=== PATIENT | male | born 1990 | race Caucasian/White ===

== ENCOUNTER 2016-11-03 13:57 | Emergency (ER) | payer SELFPAY ==
[2016-11-03 18:36] VITALS: BP 129/66
[2016-11-03] MEDS ORDERED: NS 0.9% 1000 ML* 1,000 ML IV ONE (20:18)
[2016-11-03 20:28] LABS: Hematocrit 47 % (42-52); Hemoglobin 15.3 g/dl (14.0-18.0); Mean Corpuscular HGB Conc 33 g/dl (31-36); Mean Corpuscular Hemoglobin 28 pg (27-31); Mean Corpuscular Volume 86 fL (80-94); Mean Platelet Volume 9 um3 (7.4-10.4); Red Blood Count 5.47 10^6/ul (4.0-5.4); Red Cell Distribution Width 14 % (10.5-15); White Blood Count 11.6 10^3/ul (3.5-10.8)
[2016-11-03 20:31] LABS: Urine Bilirubin Negative (Negative); Urine Glucose Negative (Negative); Urine Nitrite Negative (Negative)
[2016-11-03 20:43] LABS: Albumin 4.3 g/dL (3.2-5.2); BUN/Creatinine Ratio 17.2 (8-20); C Reactive Protein 58.25 mg/L (< 5.00); Calcium 9.5 mg/dL (8.6-10.3); EGFR African American 137.5 (>60); EGFR Non-African American 106.9 (>60); Globulin 3.3 g/dL (2-4); Potassium 3.8 mmol/L (3.5-5.0); Total Bilirubin 0.4 mg/dL (0.2-1.0); Total Protein 7.6 g/dL (6.4-8.9)
--- NOTE | 2016-11-03 21:22 | ED ---
Michele Murphy Erika, scribed for López Fernandez MD on 11/03/16 at 2053 . GI/ HPI - HPI Summary HPI Summary: Patient is a 26-year-old male presenting to the ED with a CC of diarrhea. Pt reports that starting on 10/25/2016, he had fever (T max 100), vomiting, diarrhea, and diffuse abdominal pain. These symptoms resolved after 3 days. Then , on 11/01/2015, pt developed diarrhea and abdominal pain. He describes the pain as coming intermittently about 4x/hour. Pt reports he has had 15 episodes of diarrhea in the last 6 hours. Symptoms were not alleviated by OTC Cold and Flu medication. Pt reports he has not seen a doctor in years. - History of Current Complaint Chief Complaint: EDAbdPain Time Seen by Provider: 11/03/16 20:12 Stated Complaint: VOMTING/DIARRHEA /ABD PAIN Hx Obtained From: Patient Onset/Duration: Started Days Ago, Atraumatic, Still Present Timing: Intermittent Severity: Moderate Pain Intensity: 7 Location of Pain: Diffuse Pain Characteristics: Cramping Associated Signs and Symptoms: Positive: Diarrhea Aggravating Factor(s): Nothing Alleviating Factor(s): Nothing - Allergy/Home Medications Allergies/Adverse Reactions: Allergies Allergy/AdvReac Type Severity Reaction Status Date / Time No Known Allergies Allergy Verified 10/31/14 20:11 PMH/Surg Hx/FS Hx/Imm Hx Endocrine/Hematology History: Denies: Hx Anticoagulant Therapy, Hx Diabetes, Hx Thyroid Disease Cardiovascular History: Denies: Hx Hypertension, Hx Pacemaker/ICD Respiratory History: Reports: Hx Asthma Denies: Hx Chronic Obstructive Pulmonary Disease (COPD) History: Denies: Hx Renal Disease Neurological History: Denies: Hx Dementia, Hx Seizures Psychiatric History: Denies: Hx Substance Abuse - Immunization History Date of Tetanus Vaccine: unsure Date of Influenza Vaccine: 3 yrs ago Infectious Disease History: No Infectious Disease History: Denies: Hx Hepatitis, Hx Human Immunodeficiency Virus (HIV), Traveled Outside the [place] in Last 30 Days - Family History Known Family History: Positive: Diabetes - Social History Occupation: Employed Full-time Alcohol Use: None Hx Substance Use: No Substance Use Type: Reports: None Hx Tobacco Use: No Smoking Status (MU): Never Smoked Tobacco Review of Systems Negative: Fever Positive: Abdominal Pain, Diarrhea All Other Systems Reviewed And Are Negative: Yes Physical Exam Triage Information Reviewed: Yes Vital Signs On Initial Exam: Initial Vitals Temp Pulse Resp BP Pulse Ox 98.7 F 75 16 155/71 97 11/03/16 13:58 11/03/16 13:58 11/03/16 13:58 11/03/16 13:58 11/03/16 13:58 Vital Signs Reviewed: Yes Appearance: Positive: Well-Appearing, No Pain Distress Skin: Positive: Warm Eyes: Positive: DRAKE ENT: Positive: Hearing grossly normal Neck: Positive: Supple Respiratory/Lung Sounds: Positive: Clear to Auscultation, Breath Sounds Present Cardiovascular: Positive: Normal Abdomen Description: Positive: Nontender, No Organomegaly, Soft Bowel Sounds: Positive: Present Musculoskeletal: Positive: Strength/ROM Intact Neurological: Positive: Sensory/Motor Intact, Alert, Oriented to Person Place, Time Psychiatric: Positive: Normal - Hanna Coma Scale Coma Scale Total: 15 Diagnostics - Vital Signs Vital Signs Temp Pulse Resp BP Pulse Ox 11/03/16 18:34 98.3 F 80 18 129/66 97 11/03/16 13:58 98.7 F 75 16 155/71 97 - Laboratory Lab Results: Lab Results 11/03/16 11/03/16 11/03/16 Range/Units 20:15 20:15 20:15 WBC 11.6 H (3.5-10.8) 10^3/ul RBC 5.47 H (4.0-5.4) 10^6/ul Hgb 15.3 (14.0-18.0) g/dl Hct 47 (42-52) % MCV 86 (80-94) fL MCH 28 (27-31) pg MCHC 33 (31-36) g/dl RDW 14 (10.5-15) % Plt Count 282 (150-450) 10^3/ul MPV 9 (7.4-10.4) um3 Neut % (Auto) 53.7 (38-83) % Lymph % (Auto) 29.1 (25-47) % [place] % (Auto) 13.3 H (1-9) % Eos % (Auto) 3.4 (0-6) % Baso % (Auto) 0.5 (0-2) % Absolute Neuts (auto) 6.2 (1.5-7.7) 10^3/ul Absolute Lymphs (auto) 3.4 (1.0-4.8) 10^3/ul Absolute Monos (auto) 1.5 H (0-0.8) 10^3/ul Absolute Eos (auto) 0.4 (0-0.6) 10^3/ul Absolute Basos (auto) 0.1 (0-0.2) 10^3/ul Absolute Nucleated RBC 0.01 10^3/ul Nucleated RBC % 0.1 Sodium 138 (133-145) mmol/L Potassium 3.8 (3.5-5.0) mmol/L Chloride 105 (101-111) mmol/L Carbon Dioxide 26 (22-32) mmol/L Anion Gap 7 (2-11) mmol/L BUN 15 (6-24) mg/dL Creatinine 0.87 (0.67-1.17) mg/dL Est GFR ( Amer) 137.5 (>60) Est GFR (Non-Af Amer) 106.9 (>60) BUN/Creatinine Ratio 17.2 (8-20) Glucose 99 (70-100) mg/dL Lactic Acid (0.5-2.0) mmol/L Calcium 9.5 (8.6-10.3) mg/dL Total Bilirubin 0.40 (0.2-1.0) mg/dL AST 16 (13-39) U/L ALT 24 (7-52) U/L Alkaline Phosphatase 56 (34-104) U/L C-Reactive Protein 58.25 H (< 5.00) mg/L Total Protein 7.6 (6.4-8.9) g/dL Albumin 4.3 (3.2-5.2) g/dL Globulin 3.3 (2-4) g/dL Albumin/Globulin Ratio 1.3 (1-3) Lipase 17 (11.0-82.0) U/L Urine Color Yellow Urine Appearance Clear Urine pH 5.0 (5-9) Ur Specific [place] 1.033 H (1.010-1.030) Urine Protein Negative (Negative) Urine Ketones Negative (Negative) Urine Blood Negative (Negative) Urine Nitrate Negative (Negative) Urine Bilirubin Negative (Negative) Urine Urobilinogen Negative (Negative) Ur Leukocyte Esterase Negative (Negative) Urine Glucose Negative (Negative) Urine Ascorbic Acid * H (Negative) 11/03/16 Range/Units 20:15 WBC (3.5-10.8) 10^3/ul RBC (4.0-5.4) 10^6/ul Hgb (14.0-18.0) g/dl Hct (42-52) % MCV (80-94) fL MCH (27-31) pg MCHC (31-36) g/dl RDW (10.5-15) % Plt Count (150-450) 10^3/ul MPV (7.4-10.4) um3 Neut % (Auto) (38-83) % Lymph % (Auto) (25-47) % [place] % (Auto) (1-9) % Eos % (Auto) (0-6) % Baso % (Auto) (0-2) % Absolute Neuts (auto) (1.5-7.7) 10^3/ul Absolute Lymphs (auto) (1.0-4.8) 10^3/ul Absolute Monos (auto) (0-0.8) 10^3/ul Absolute Eos (auto) (0-0.6) 10^3/ul Absolute Basos (auto) (0-0.2) 10^3/ul Absolute Nucleated RBC 10^3/ul Nucleated RBC % Sodium (133-145) mmol/L Potassium (3.5-5.0) mmol/L Chloride (101-111) mmol/L Carbon Dioxide (22-32) mmol/L Anion Gap (2-11) mmol/L BUN (6-24) mg/dL Creatinine (0.67-1.17) mg/dL Est GFR ( Amer) (>60) Est GFR (Non-Af Amer) (>60) BUN/Creatinine Ratio (8-20) Glucose (70-100) mg/dL Lactic Acid 0.8 (0.5-2.0) mmol/L Calcium (8.6-10.3) mg/dL Total Bilirubin (0.2-1.0) mg/dL AST (13-39) U/L ALT (7-52) U/L Alkaline Phosphatase (34-104) U/L C-Reactive Protein (< 5.00) mg/L Total Protein (6.4-8.9) g/dL Albumin (3.2-5.2) g/dL Globulin (2-4) g/dL Albumin/Globulin Ratio (1-3) Lipase (11.0-82.0) U/L Urine Color Urine Appearance Urine pH (5-9) Ur Specific [place] (1.010-1.030) Urine Protein (Negative) Urine Ketones (Negative) Urine Blood (Negative) Urine Nitrate (Negative) Urine Bilirubin (Negative) Urine Urobilinogen (Negative) Ur Leukocyte Esterase (Negative) Urine Glucose (Negative) Urine Ascorbic Acid (Negative) Pertinent Lab Values Are: WNL Result Diagrams: 11/03/16 20:15 11/03/16 20:15 Lab Statement: Any lab studies that have been ordered have been reviewed, and results considered in the medical decision making process. Re-Evaluation - Re-Evaluation First Eval Re-Evaluation Time: 21:26 Change: Improved Comment: Patient feels improved and will be discharged GIGU Course/Dx - Course Assessment/Plan: A 26 y/o M presents to the ED with a CC of abdominal pain and diarrhea. Pt was given IV fluids in the ED, and feels improved. He will be discharged with follow up from GI. - Diagnoses Provider Diagnoses: Abdominal pain, Diarrhea Discharge - Discharge Plan Condition: Stable Disposition: HOME Patient Education Materials: Abdominal Pain (ED), Acute Diarrhea (ED) Referrals: Ayush Rodriguez MD [Medical Doctor] - Additional Instructions: Please follow up with GI. The documentation as recorded by the Michele marks Erika accurately reflects the service I personally performed and the decisions made by me, López Fernandez MD.
== END 2016-11-03 22:07 | disposition home or self-care (01) ==
LOC: ED 13:57
DX: R10.9 Unspecified abdominal pain (principal); R19.7 Diarrhea, unspecified; R11.10 Vomiting, unspecified
CPT/HCPCS: 36415; 80053; 81003; 83605; 83690; 85025; 86140; 96360; 99282

== ENCOUNTER 2017-02-09 12:23 | Emergency (ER) | payer SELFPAY ==
--- NOTE | 2017-02-09 15:10 | UC ---
Abdominal Pain Male HPI - HPI Summary HPI Summary: The patient comes in today for: 1. Epigastric pain: Onset: 1-2 weeks but he has had new symptoms (fatigue, anorexia, "feeling off"- -"blah"). Palliative/provocative: Nothing makes the pain better or worse. Quality: "Irritating, ache" Region: Epigastric area. Severity: 2/10 Associated symptoms: He has a history of "stomach issues." He has seen GI "a few months ago." He had blood work and blood in the stool and for ceiliac disease. No endoscopy was done. The final diagnosis was irritable bowel. Last seen November. He was not given any Rx by his GI physician. Vomiting: None. Diarrhea: 2-3 stools a day recently--soft--not liquid. Previous treatment: None. Heartburn: present "sometimes." * - History of Current Complaint Chief Complaint: UCAbdominalPain Stated Complaint: ABD PAIN Time Seen by Provider: 02/09/17 15:05 Hx Obtained From: Patient - Allergies/Home Medications Allergies/Adverse Reactions: Allergies Allergy/AdvReac Type Severity Reaction Status Date / Time No Known Allergies Allergy Verified 10/31/14 20:11 PMH/Surg Hx/FS Hx/Imm Hx Previously Healthy: Yes Endocrine History Of: Denies: Diabetes, Thyroid Disease, Hyperthyroidism, Hypothyroidism, Dyslipidemia Cardiovascular History Of: Denies: Cardiac Disorders, Hypertension, Pacemaker/ICD, Myocardial Infarction , Congestive Heart Failure, Atrial Fibrillation, Deep Vein Thrombosis, Bleeding Disorders Respiratory History Of: Reports: Asthma - He was last treated for it "years ago. " Denies: COPD, Bronchitis, Pneumonia, Pulmonary Embolism GI/ History Of: Denies: Gastroesophageal Reflux, Ulcer, Gastrointestinal Bleed, Gall Bladder Disease, Kidney Stones, Diverticulitis, Renal Disease, Urosepsis Neurological History Of: Denies: TIA, CVA, Dementia, Seizures, Migraine Psychological History Of: Denies: Anxiety, Depression, Bipolar Disorder, Schizophrenia, Post Traumatic Stress Disorder Cancer History Of: Denies: Lung Cancer, Colorectal Cancer, Breast Cancer, Prostate Cancer, Cervical Cancer Other History Of: Negative For: HIV, Hepatitis B, Hepatitis C, Anticoagulant Therapy - Surgical History Surgical History: None - Family History Known Family History: Positive: Diabetes Negative: Cardiac Disease - Social History Occupation: Employed Full-time Alcohol Use: None Substance Use Type: None Smoking Status (MU): Never Smoked Tobacco Review of Systems Constitutional: Negative Skin: Negative Eyes: Negative ENT: Negative Respiratory: Negative Cardiovascular: Negative Gastrointestinal: Abdominal Pain Genitourinary: Negative All Other Systems Reviewed And Are Negative: Yes Physical Exam Triage Information Reviewed: Yes Appearance: Well-Appearing, No Pain Distress, Well-Nourished Vital Signs: Initial Vital Signs Temp 98.2 F 02/09/17 12:56 Pulse 79 02/09/17 12:56 Resp 16 02/09/17 12:56 BP 118/53 02/09/17 12:56 Pulse Ox 100 02/09/17 12:56 Vital Signs Reviewed: Yes Eyes: Positive: Conjunctiva Clear. Negative: Discharge ENT: Positive: Hearing grossly normal. Negative: Pharyngeal erythema, Nasal congestion, Nasal drainage, TM bulging, TM dull, TM red, Tonsillar swelling, Tonsillar exudate Dental: Negative: Gross Decay/Caries @, Dental Fracture @ Neck: Positive: Supple, Nontender, No Lymphadenopathy. Negative: Nuchal Rigidity Respiratory: Positive: Chest non-tender, Lungs clear, Normal breath sounds, No respiratory distress, No accessory muscle use. Negative: Rhonchi, Wheezing Cardiovascular: Positive: RRR, No Murmur Abdomen Description: Positive: No Organomegaly, Soft. Negative: Nontender - He has minimal tenderness in the epigastric area. There is no percussion tenderness or rebound., Distended, Guarding Musculoskeletal: Positive: Strength Intact, ROM Intact Neurological: Positive: Alert, Muscle Tone Normal Psychological: Positive: Age Appropriate Behavior, Consolable Skin: Negative: rashes, breakdown Re-Evaluation - Re-Evaluation First Eval Change: Improved - 30 ml of Maalox Plus and 15 ml of viscous lidocaine significantly helped his epigastric discomfort. Abd Pain Male Course/Dx - Course Course Of Treatment: Patient was told that his presentation is consistent with peptic ulcer disease and recommended PPI. He stated that he wanted to try this. - Differential Dx/Clinical Impression Differential Diagnosis/HQI/PQRI: Constipation, Pancreatitis Provider Diagnoses: dyspepsia Discharge - Discharge Plan Condition: Stable Disposition: HOME Patient Education Materials: Indigestion (ED), Gastritis (ED) Forms: *Work Release Referrals: [facility] [Outside] No Primary Care Phys,NOPCP [Primary Care Provider] - 1 Week (Please see your primary care provider in the next week. If you get worse, please be seen sooner by your primary care provider or us or the ER. If you don't have a primary care provider, please call the physician referral line to help you get one. If you can't get in sooner, you may see us or the ER.)
[2017-02-09] MEDS ORDERED: Al Hydrox/Mg Hydrox/Simet LIQ* 30 ML UDC PO ONE (15:18)
[2017-02-09] MEDS ORDERED: Lidocaine 2% VISCOUS* 15 ML UDC PO ONE (15:19)
[2017-02-09 15:46] VITALS: BP 111/71
== END 2017-02-09 16:01 | disposition home or self-care (01) ==
LOC: UCEAST 12:23
DX: R10.13 Epigastric pain (principal)
CPT/HCPCS: 99212; A9270-GY; G0463

== ENCOUNTER 2017-04-17 09:06 | Emergency (ER) | payer SELFPAY ==
--- NOTE | 2017-04-17 09:26 | UC ---
Ear Complaint HPI - History of Current Complaint Chief Complaint: UCEar Stated Complaint: EAR PAIN Time Seen by Provider: 04/17/17 09:13 Hx Obtained From: Patient Onset/Duration: Gradual Onset - started 2 days ago with ear fullness and sinus congestion, tried OTC cold meds. LAst nigh the awoke from sleep with sharp stabbing pain in L ear, no d/c Pain Scale Used: 0-10 Numeric - 6 Aggravating Factors: Nothing Alleviating Factors: Nothing Associated Signs/Symptoms: Negative: Discharge, Hearing Loss - Allergies/Home Medications Allergies/Adverse Reactions: Allergies Allergy/AdvReac Type Severity Reaction Status Date / Time No Known Allergies Allergy Verified 04/17/17 09:15 Home Medications: Home Medications Naproxen Sodium-Diphenhydramin [Aleve PM 220-25 mg] 6 tab PO PRN 04/17/17 [ History] Omeprazole CAP* [Prilosec CAP* 20 MG] 20 mg PO DAILY 04/17/17 [History Confirmed 04/17/17] PMH/Surg Hx/FS Hx/Imm Hx Previously Healthy: Yes Other History Of: Negative For: HIV, Hepatitis B, Hepatitis C, Anticoagulant Therapy - Surgical History Surgical History: None - Family History Known Family History: Positive: Diabetes Negative: Cardiac Disease - Social History Occupation: Employed Full-time - [employer] Alcohol Use: None Substance Use Type: None Smoking Status (MU): Heavy Every Day Tobacco Smoker Type: Smokeless Tobacco Amount Used/How Often: 1 can every 2-3 days Length of Time of Smoking/Using Tobacco: started at age 17 Cessation Counseling: Patient Advised to Stop Review of Systems Constitutional: Negative Skin: Negative Eyes: Negative ENT: Ear Ache, Sinus Congestion Respiratory: Negative Cardiovascular: Negative Gastrointestinal: Negative Musculoskeletal: Negative Neurological: Negative Psychological: Negative All Other Systems Reviewed And Are Negative: Yes Physical Exam Triage Information Reviewed: Yes Appearance: Well-Appearing, No Pain Distress, Well-Nourished Vital Signs: Initial Vital Signs Temp 98.3 F 04/17/17 09:09 Pulse 79 04/17/17 09:09 Resp 14 04/17/17 09:09 BP 134/65 04/17/17 09:09 Pulse Ox 99 04/17/17 09:09 Vital Signs Reviewed: Yes Eyes: Positive: Conjunctiva Clear ENT: Positive: Pharyngeal erythema, Nasal congestion, TM bulging, TM dull, TM red - L TM dull, red, bulging R TM dull Neck exam: Normal Respiratory Exam: Normal Cardiovascular Exam: Normal Neurological Exam: Normal Psychological Exam: Normal Skin Exam: Normal Skin: Negative: rashes Ear Complaint Course/Dx - Differential Dx/Diagnosis Differential Diagnosis/HQI/PQRI: Cerumen Impaction, Otitis Externa, Otitis Media , URI, Other - sinusitis Provider Diagnoses: LOM Discharge - Discharge Plan Condition: Stable Disposition: HOME Prescriptions: Amoxicillin/Clavulanate TAB* [Augmentin TAB 875*] 875 mg PO BID #20 tab Forms: *Work Release Additional Instructions: use over the counter ibuprofen 600-800mg every 6 h as needed for pain Start antibiotic (augmentin) and finish all 10 days as directed return if symptoms worsen at any time
[2017-04-17 09:35] VITALS: BP 134/65
== END 2017-04-17 09:37 | disposition home or self-care (01) ==
LOC: UCEAST 09:06
DX: H66.92 Otitis media, unspecified, left ear (principal); F17.220 Nicotine dependence, chewing tobacco, uncomplicated
CPT/HCPCS: 99212; G0463

== ENCOUNTER 2017-06-28 09:34 | Emergency (ER) | payer SELFPAY ==
--- NOTE | 2017-06-28 10:28 | ED ---
Headache - HPI Summary HPI Summary: Patient presents to the ED with CC of stabbing NICHOLSON pain x 4-5 days. 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 scan 8-10 years ago. He states he has not had any NICHOLSON, visual disturbances, photophobia or other symptoms since diagnoses of subarachnoid cyst. Denies hx of migraines. Onset of pain was 5 days ago and notes to a stabbing pain in the right temporal area (same locations as the cyst). He also states the pain has since moved to the left parietal and occipital. Pain was sudden in onset, but not worst of life. Denies any pain now. He has not taken any medication for relief. Denies any other symptoms currently including visual changes, aura, sensitivity to light, neck pain, N/V. He is otherwise healthy and takes no mediations. PMHx includes asthma. He states he had albuterol as a child, but denies needing any medication since highschool. Denies SOB or chest pain. Nothing makes the pain better or worse. - History Of Current Complaint Chief Complaint: EDHeadache Stated Complaint: PAIN IN HEAD Time Seen by Provider: 06/28/17 09:58 Hx Obtained From: Patient Onset/Duration: Sudden Onset, Started days ago Initially Headache Was: Initial Pain Scale(0-10)= - 8 Currently Pain Is: Current Pain Scale(0-10)= - 0 Timing: Intermittent, Lasting:, Minutes - to seconds Character: Throbbing, Pressure Location of Headache: Temporal, Parietal, Occipital Aggravating Factor: Nothing Allevating Factors: Nothing Associated Signs And Symptoms: Negative - Risk Factors SAH Risk Factors: Negative Meningitis Risk Factors: Negative SDH Risk Factors: Male - Allergies/Home Medications Allergies/Adverse Reactions: Allergies Allergy/AdvReac Type Severity Reaction Status Date / Time No Known Allergies Allergy Verified 04/17/17 09:15 PMH/Surg Hx/FS Hx/Imm Hx Previously Healthy: Yes Endocrine/Hematology History: Denies: Hx Anticoagulant Therapy, Hx Diabetes, Hx Thyroid Disease Cardiovascular History: Denies: Hx Congestive Heart Failure, Hx Deep Vein Thrombosis, Hx Hypertension , Hx Myocardial Infarction, Hx Pacemaker/ICD Respiratory History: Reports: Hx Asthma - He was last treated for it "years ago. " Denies: Hx Chronic Obstructive Pulmonary Disease (COPD), Hx Lung Cancer, Hx Pneumonia, Hx Pulmonary Embolism GI History: Denies: Hx Gall Bladder Disease, Hx Gastrointestinal Bleed, Hx Ulcer, Hx Urosepsis History: Denies: Hx Kidney Stones, Hx Renal Disease Neurological History: Denies: Hx Dementia, Hx Migraine, Hx Seizures, Hx Transient Ischemic Attacks (TIA) Psychiatric History: Denies: Hx Anxiety, Hx Depression, Hx Schizophrenia, Hx Bipolar Disorder, Hx Substance Abuse - Immunization History Date of Tetanus Vaccine: unsure Date of Influenza Vaccine: 3 yrs ago Hx Pertussis Vaccination: No Immunizations Up to Date: Unable to Obtain/Confirm Infectious Disease History: No Infectious Disease History: Denies: Hx Hepatitis, Hx Human Immunodeficiency Virus (HIV), Traveled Outside the [place] in Last 30 Days - Family History Known Family History: Positive: Diabetes Negative: Cardiac Disease - Social History Occupation: Employed Full-time Lives: With Family Alcohol Use: None Hx Substance Use: No Substance Use Type: Reports: None Hx Tobacco Use: No Smoking Status (MU): Never Smoked Tobacco Type: Smokeless Tobacco Amount Used/How Often: 1 can every 2-3 days Length of Time of Smoking/Using Tobacco: started at age 17 Review of Systems Constitutional: Negative Eyes: Negative ENT: Negative Positive: Cough Gastrointestinal: Negative Genitourinary: Negative Positive: no symptoms reported, see HPI Musculoskeletal: Negative Positive: Headache Psychological: Normal All Other Systems Reviewed And Are Negative: Yes Physical Exam Triage Information Reviewed: Yes Vital Signs On Initial Exam: Initial Vitals Temp Pulse Resp BP Pulse Ox 97 F 71 17 121/71 98 06/28/17 09:35 06/28/17 09:35 06/28/17 09:35 06/28/17 09:35 06/28/17 09:35 Vital Signs Reviewed: Yes Appearance: Positive: Well-Appearing, Well-Nourished Skin: Positive: Warm, Skin Color Reflects Adequate Perfusion Head/Face: Positive: Normal Head/Face Inspection, Other. Negative: Temporal Artery Tenderness, TMJ Tenderness, Scalp, Cephalohematoma Eyes: Positive: EOMI, DRAKE, Conjunctiva Clear ENT: Positive: Hearing grossly normal Neck: Positive: Supple, Nontender, No Lymphadenopathy Respiratory/Lung Sounds: Positive: Clear to Auscultation, Breath Sounds Present Cardiovascular: Positive: Normal, RRR, Pulses are Symmetrical in both Upper and Lower Extremities Musculoskeletal: Positive: Normal, Strength/ROM Intact. Negative: Edema Left, Edema Right Neurological: Positive: Normal Gait, Facial Symmetry, Speech Normal. Negative: Receptive Aphasia, Expressive Aphasia, Babinski Left, Babinski Right, Babinski Bilateral, Slurred Speech, Pronator Drift Present Psychiatric: Positive: Normal AVPU Assessment: Alert - Hanna Coma Scale Best Eye Response: 4 - Spontaneous Best Motor Response: 6 - Obeys Commands Best Verbal Response: 5 - Oriented Coma Scale Total: 15 Diagnostics - Vital Signs Vital Signs Temp Pulse Resp BP Pulse Ox 06/28/17 09:49 75 99 06/28/17 09:47 110/84 06/28/17 09:46 98.2 F 79 16 110/84 98 06/28/17 09:35 97 F 71 17 121/71 98 - Laboratory Result Diagrams: 06/28/17 10:20 06/28/17 10:20 Lab Statement: Any lab studies that have been ordered have been reviewed, and results considered in the medical decision making process. Headache Course/Dx - Course Course Of Treatment: NICHOLSON pain was sudden in onset but not worst of life. Hx of subarachnoid cyst. To his knowledge, this has remained stable. He denies any migraine symptoms including visual changes, aura, senstivitiy to light, N/V. Discussed with patient risks and benefits to CT scan. Patient would like to move forth with the CT scan understanding the risks susceptible to him. He denies close follow up and does not curretnly have a PCP. Low risk for temporal arteritis and ESR WNL. Labs: WNL. CT brain:no acute intracranial pathology. Subarachnoid cyst is stable x [address] comparison. He is given albuterol inhaler for his asthma symptoms and recent cough. Lungs CTA. Patient is OK for dicsharge. Will give resoursces and PCP information to establish care. - Diagnoses Differential Diagnosis/HQI/PQRI: Sinus Headache, Temporal Arteritis, Tension Headache Provider Diagnoses: Headache Discharge - Discharge Plan Condition: Stable Disposition: HOME Prescriptions: Albuterol HFA INHALER* [Ventolin HFA Inhaler*] 1 puff INH Q4H PRN #1 mdi PRN Reason: Shortness Of Breath Patient Education Materials: Acute Headache (ED) Referrals: [facility] [Provider Group] [facility] [Provider Group] No Primary Care Phys,NOPCP [Primary Care Provider] - Additional Instructions: Subarachnoid cyst is stable from 2006. Follow up with a PCP yearly I have given you a list of PCP's in the area. If you develop any worsening symptoms, return to the ED immediately You may take Tylenol 650mg three times daily for any acute headache.
[2017-06-28 10:29] LABS: Hematocrit 46 % (42-52); Hemoglobin 15.4 g/dl (14.0-18.0); Mean Corpuscular HGB Conc 34 g/dl (31-36); Mean Corpuscular Hemoglobin 28 pg (27-31); Mean Corpuscular Volume 84 fL (80-94); Mean Platelet Volume 9 um3 (7.4-10.4); Red Blood Count 5.44 10^6/ul (4.0-5.4); Red Cell Distribution Width 14 % (10.5-15); White Blood Count 8.4 10^3/ul (3.5-10.8)
--- NOTE | 2017-06-28 10:39 | RAD ---
HISTORY: Headache COMPARISONS: Head CT dated July 08, 2007 TECHNIQUE: Multiple contiguous axial CT scans were obtained of the head without intravenous contrast. FINDINGS: HEMORRHAGE/INFARCT: There is no hemorrhage or acute infarct. MASSES/SHIFT: There is no mass or shift. EXTRA-AXIAL SPACES: Again noted is a posterior fossa arachnoid cyst. This is stable. SULCI AND VENTRICLES: The sulci and ventricles are normal in size and position for the patient's stated age. CEREBRUM: There are no focal parenchymal abnormalities. BRAINSTEM: There are no focal parenchymal abnormalities. CEREBELLUM: There are no focal parenchymal abnormalities. VESSELS: The vessels are grossly normal. PARANASAL SINUSES: The paranasal sinuses are clear. ORBITS: The orbits are unremarkable. BONES AND SOFT TISSUE: No bone or soft tissue abnormalities are noted. OTHER: None IMPRESSION: NO ACUTE INTRACRANIAL PATHOLOGY.
[2017-06-28 10:42] LABS: BUN/Creatinine Ratio 16.3 (8-20); Calcium 9.5 mg/dL (8.6-10.3); EGFR African American 151.5 (>60); EGFR Non-African American 117.8 (>60); Globulin 3.2 g/dL (2-4); Potassium 3.9 mmol/L (3.5-5.0); Total Bilirubin 0.6 mg/dL (0.2-1.0); Total Protein 7.2 g/dL (6.4-8.9)
[2017-06-28 11:13] VITALS: BP 110/62
[2017-06-28 11:31] LABS: Erythrocyte Sed Rate 11 mm/Hr (0-14)
== END 2017-06-28 11:15 | disposition home or self-care (01) ==
LOC: ED 09:34
DX: R51 Headache (principal); J45.909 Unspecified asthma, uncomplicated; F17.220 Nicotine dependence, chewing tobacco, uncomplicated
CPT/HCPCS: 36415; 70450; 80053; 85025; 85652; 86141; 99282

== ENCOUNTER 2017-11-15 15:14 | Emergency (ER) | payer SELFPAY ==
--- NOTE | 2017-11-15 17:23 | RAD ---
INDICATION: Cough COMPARISON: Chest x-ray dated January 28, 2013 TECHNIQUE: PA and lateral views of the chest were obtained. FINDINGS: The heart and mediastinum are normal in size and contour. The lungs are grossly clear. There is no evidence of large pleural effusion. Visualized bones are normal for the patient's age. There is no radiographic evidence of free air beneath the diaphragm IMPRESSION: No radiographic evidence of acute cardiopulmonary disease.
--- NOTE | 2017-11-15 18:20 | ED ---
HPI Chest Pain - HPI Summary HPI Summary: 27M presents with chest pain for today. He states he has had an intermittent cough for past three weeks. He admits to occasionally SOB. He denies any fever. He has PMH of asthma and has been using gf inhaler. He admits to sinus congestion. He denies any sore throat. He denies any abdominal pain, nausea, vomiting, or diarrhea. He denies any family cardiac history. He denies any history of HTN or DM. He states the chest pain is pressure like that is worst with coughing. - History of Current Complaint Chief Complaint: EDGeneral Time Seen by Provider: 11/15/17 17:52 Pain Intensity: 3 - Allergy/Home Medications Allergies/Adverse Reactions: Allergies Allergy/AdvReac Type Severity Reaction Status Date / Time No Known Allergies Allergy Verified 04/17/17 09:15 PMH/Surg Hx/FS Hx/Imm Hx Endocrine/Hematology History: Denies: Hx Anticoagulant Therapy, Hx Diabetes, Hx Thyroid Disease Cardiovascular History: Denies: Hx Congestive Heart Failure, Hx Deep Vein Thrombosis, Hx Hypertension , Hx Myocardial Infarction, Hx Pacemaker/ICD Respiratory History: Reports: Hx Asthma - He was last treated for it "years ago. " Denies: Hx Chronic Obstructive Pulmonary Disease (COPD), Hx Lung Cancer, Hx Pneumonia, Hx Pulmonary Embolism GI History: Denies: Hx Gall Bladder Disease, Hx Gastrointestinal Bleed, Hx Ulcer, Hx Urosepsis History: Denies: Hx Kidney Stones, Hx Renal Disease Neurological History: Denies: Hx Dementia, Hx Migraine, Hx Seizures, Hx Transient Ischemic Attacks (TIA) Psychiatric History: Denies: Hx Anxiety, Hx Depression, Hx Schizophrenia, Hx Bipolar Disorder, Hx Substance Abuse - Immunization History Date of Tetanus Vaccine: unsure Date of Influenza Vaccine: 3 yrs ago Infectious Disease History: No Infectious Disease History: Denies: Hx Hepatitis, Hx Human Immunodeficiency Virus (HIV), Traveled Outside the [place] in Last 30 Days - Family History Known Family History: Positive: Diabetes Negative: Cardiac Disease - Social History Alcohol Use: None Hx Substance Use: No Substance Use Type: Reports: None Hx Tobacco Use: No Smoking Status (MU): Never Smoked Tobacco Type: Smokeless Tobacco Amount Used/How Often: 1 can every 2-3 days Length of Time of Smoking/Using Tobacco: started at age 17 Review of Systems Negative: Fever Positive: Chest Pain Positive: Shortness Of Breath, Cough Negative: Abdominal Pain All Other Systems Reviewed And Are Negative: Yes Physical Exam Triage Information Reviewed: Yes Vital Signs On Initial Exam: Initial Vitals Temp Pulse Resp BP Pulse Ox 97.9 F 69 16 119/74 97 11/15/17 15:25 11/15/17 15:25 11/15/17 15:25 11/15/17 15:25 11/15/17 15:25 Vital Signs Reviewed: Yes Appearance: Positive: Well-Appearing Skin: Positive: Warm, Dry Head/Face: Positive: Normal Head/Face Inspection Eyes: Positive: Normal, EOMI, DRAKE, Conjunctiva Clear ENT: Positive: Normal ENT inspection, Pharynx normal, TMs normal Neck: Positive: Supple, Nontender, No Lymphadenopathy Respiratory/Lung Sounds: Positive: Clear to Auscultation, Breath Sounds Present Cardiovascular: Positive: Normal, RRR Abdomen Description: Positive: Nontender, Soft Bowel Sounds: Positive: Present Musculoskeletal: Positive: Normal Neurological: Positive: Normal Psychiatric: Positive: Normal - [place] Coma Scale Coma Scale Total: 15 Diagnostics - Vital Signs Vital Signs Temp Pulse Resp BP Pulse Ox 11/15/17 15:25 97.9 F 69 16 119/74 97 - Laboratory Lab Results: Lab Results 11/15/17 Range/Units 16:03 Influenza A (Rapid) Negative (Negative) Influenza B (Rapid) Negative (Negative) Result Diagrams: 11/15/17 19:03 11/15/17 19:03 Lab Statement: Any lab studies that have been ordered have been reviewed, and results considered in the medical decision making process. - Radiology chest Xray Interpretation: No Acute Changes Radiology Interpretation Completed By: Radiologist - EKG No standard instances Cardiac Rate: NL EKG Rhythm: Sinus Rhythm ST Segment: Normal EKG Interpretation: normal sinus rhythm Chest Pain Course/Dx - Course Course Of Treatment: 27M presents with chest pain for today. He states he has had an intermittent cough for past three weeks. He admits to occasionally SOB. He denies any fever. He has PMH of asthma and has been using gf inhaler. He admits to sinus congestion. He denies any sore throat. He denies any abdominal pain, nausea, vomiting, or diarrhea. He denies any family cardiac history. He denies any history of HTN or DM. He states the chest pain is pressure like that is worst with coughing. on exam lungs CTA. chest xray normal. wbc elevated, troponin neg, flu neg, ekg normal. will discharge with prednisone and inhaler. patient left before discussed labs as does not want to wait. patient understand and agrees with plan. - Chest Pain Differential Diagnosis/HQI/PQRI: Acute MD, Chest Wall, Lower Respiratory Infection - Diagnoses Provider Diagnoses: Cough, Chest pain Discharge - Discharge Plan Condition: Good Disposition: HOME Prescriptions: Albuterol HFA INHALER* [Ventolin HFA Inhaler*] 1 puff INH Q4H PRN #1 mdi PRN Reason: Sob/Wheezing predniSONE TAB* [Deltasone TAB*] 40 mg PO DAILY #5 tab Patient Education Materials: Acute Bronchitis (ED) Referrals: No Primary Care Phys,NOPCP [Primary Care Provider] - Additional Instructions: Use inhaler up to two puffs every 4 hours for cough and wheezing Take steroid once a day for 5 days Take Tylenol or ibuprofen for pain every 6 hours Return to ED if develop any new or worsening symptoms
[2017-11-15 19:12] VITALS: BP 000/00
[2017-11-15 19:16] LABS: ABS Basophils 0.1 10^3/ul (0-0.2); ABS Eosinophils 0.5 10^3/ul (0-0.6); ABS Neutrophils 7.4 10^3/ul (1.5-7.7); ABS Nucleated RBC 0 10^3/ul; Eosinophil % 4.1 % (0-6); Hematocrit 46 % (42-52); Hemoglobin 15.5 g/dl (14.0-18.0); Lymphocyte % 30.8 % (25-47); Mean Corpuscular HGB Conc 33 g/dl (31-36); Mean Corpuscular Hemoglobin 28 pg (27-31); Mean Corpuscular Volume 84 fL (80-94); Mean Platelet Volume 9 um3 (7.4-10.4); Nucleated Red Blood Cells % 0.1; Platelet Count 269 10^3/ul (150-450); Red Blood Count 5.53 10^6/ul (4.0-5.4); Red Cell Distribution Width 15 % (10.5-15)
[2017-11-15 19:34] LABS: EGFR Non-African American 116.9 (>60)
== END 2017-11-15 19:10 | disposition home or self-care (01) ==
LOC: ED 15:14
DX: R05 Cough (principal); R07.89 Other chest pain; R06.02 Shortness of breath; J45.909 Unspecified asthma, uncomplicated; F17.220 Nicotine dependence, chewing tobacco, uncomplicated
CPT/HCPCS: 36415; 71046; 80053; 84484; 85025; 87502; 93005; 99282

== ENCOUNTER 2017-12-01 13:13 | Emergency (ER) | payer SELFPAY ==
[2017-12-01 13:32] VITALS: BP 132/74
--- NOTE | 2017-12-01 15:10 | UC ---
Psychiatric Complaint HPI - HPI Summary HPI Summary: Patient presents with a past medical history of asthma. He states he was diagnosed with bronchitis 11/15/17 and was treated with albuterol and predninse. He states that he took the medication and did have some temporary relief but states he continues to cough and chest congestions. He states he is using his albuterol just not as much. He comes back in for re-evaluation. Denies fever, chills, chest pain, dyspnea, productive cough, abdominal pain, nausea, vomiting , diarrhea. - History Of Current Complaint Chief Complaint: UCRespiratory Stated Complaint: CHEST CONGESTION, AND COUGH Time Seen by Provider: 12/01/17 14:50 Hx Obtained From: Patient Onset/Duration: Gradual Onset, Lasting Weeks Timing: Minutes Severity Initially: Moderate Severity Currently: Mild Aggravating Factor(s): Nothing, Other - recent bronchitis Alleviating Factor(s): Nothing Associated Signs And Symptoms: Negative - Risk Factor(s) Completed Suicide Risk Factors: Negative - Allergies/Home Medications Allergies/Adverse Reactions: Allergies Allergy/AdvReac Type Severity Reaction Status Date / Time No Known Allergies Allergy Verified 12/01/17 13:23 Home Medications: Home Medications Acetaminophen [Tylenol] 325 mg PO 12/01/17 [History] PMH/Surg Hx/FS Hx/Imm Hx Previously Healthy: Yes Respiratory History: Asthma Other History Of: Negative For: HIV, Hepatitis B, Hepatitis C, Anticoagulant Therapy - Surgical History Surgical History: None - Family History Known Family History: Positive: Diabetes Negative: Cardiac Disease - Social History Occupation: Unemployed Lives: With Family Alcohol Use: None Substance Use Type: None Smoking Status (MU): Never Smoked Tobacco Type: Smokeless Tobacco Amount Used/How Often: 1 can every 2-3 days Length of Time of Smoking/Using Tobacco: started at age 17 - Immunization History Most Recent Tetanus Shot: no Review of Systems Constitutional: Negative Skin: Negative Eyes: Negative ENT: Negative Respiratory: Cough Cardiovascular: Negative Gastrointestinal: Negative Genitourinary: Negative Motor: Negative Neurovascular: Negative Musculoskeletal: Negative Neurological: Negative Psychological: Negative Is Patient Immunocompromised?: No All Other Systems Reviewed And Are Negative: Yes Physical Exam Triage Information Reviewed: Yes Appearance: Well-Appearing Vital Signs: Initial Vital Signs Temp 98.4 F 12/01/17 13:27 Pulse 85 12/01/17 13:27 Resp 17 12/01/17 13:27 BP 132/74 12/01/17 13:27 Pulse Ox 98 12/01/17 13:27 Eye Exam: Normal ENT Exam: Normal Dental Exam: Normal Neck exam: Normal Neck: Positive: 1 Respiratory: Positive: Rhonchi Cardiovascular Exam: Normal Abdominal Exam: Normal Musculoskeletal Exam: Normal Neurological Exam: Normal Psychological Exam: Normal Skin Exam: Normal Psych Complaint Course/Dx - Course Course Of Treatment: Patient presents with a past medical history of asthma. He had recent bronchitis and continues to cough. He does have inspiratory rhonchus noted particularily in the right bronhcus. He presents clincally with reactive airway, and will treat with another five day course of prednisone, and albuterol and I have referred him to Allergy and Asthma. - Differential Dx/Diagnosis Differential Diagnosis/HQI/PQRI: Other - asthma Provider Diagnoses: asthma Discharge - Discharge Plan Condition: Stable Disposition: HOME Prescriptions: Fluticasone HFA 110 mcg(NF) [Flovent HFA 110 mcg(NF)] 1 puff INH BID #1 mdi predniSONE TAB* [Deltasone TAB*] 20 mg PO BID #10 tab Patient Education Materials: Asthma (DC), Reactive Airways Disease (ED) Referrals: Osei Meehan MD [Medical Doctor] - No Primary Care Phys,NOPCP [Primary Care Provider] -
== END 2017-12-01 15:10 | disposition home or self-care (01) ==
LOC: UCEAST 13:13
DX: J45.909 Unspecified asthma, uncomplicated (principal)
CPT/HCPCS: 99212; G0463

== ENCOUNTER 2017-12-23 08:19 | Emergency (ER) | payer SELFPAY ==
[2017-12-23] MEDS ORDERED: Albuterol HFA INHALER* 8 gm MDI INH ONE (08:41)
[2017-12-23] MEDS ORDERED: predniSONE TAB* 20 MG PO ONE (08:43)
[2017-12-23] MEDS ORDERED: Amoxicillin/Clavulanate TAB* 875 MG PO ONE (08:43)
--- NOTE | 2017-12-23 09:04 | ED ---
Wilbert Murphy Julia, scribed for Gonzalo Winters MD on 12/23/17 at 0841 . Respiratory - HPI Summary HPI Summary: This patient is a 27 year old MF presenting to [facility] with a chief complaint of persistent URI symptoms for the past 3 months worsening 3 days ago with a pounding frontal headache. Patient reports coughing, wheezing, L ear pain, and bright yellow nasal discharge. Patient denies fever. The patient rates the pain 3/10 in severity. Has not attempted to establish a PCP. - History of Current Complaint Chief Complaint: EDGeneral Stated Complaint: COUGH, Hx Obtained From: Patient Onset/Duration: Lasting Weeks - months, Worse Since - past 3 days Timing: Constant Pain Intensity: 3 Character: Wheezing, Cough (Nonproductive) Sputum Color: Yellow Associated Signs and Symptoms: Wheezing - and coughing, Nasal Congestion, Sinus Discomfort - Allergy/Home Medications Allergies/Adverse Reactions: Allergies Allergy/AdvReac Type Severity Reaction Status Date / Time No Known Allergies Allergy Verified 12/01/17 13:23 PMH/Surg Hx/FS Hx/Imm Hx Endocrine/Hematology History: Denies: Hx Anticoagulant Therapy, Hx Diabetes, Hx Thyroid Disease Cardiovascular History: Denies: Hx Congestive Heart Failure, Hx Deep Vein Thrombosis, Hx Hypertension , Hx Myocardial Infarction, Hx Pacemaker/ICD Respiratory History: Reports: Hx Asthma - He was last treated for it "years ago. " Denies: Hx Chronic Obstructive Pulmonary Disease (COPD), Hx Lung Cancer, Hx Pneumonia, Hx Pulmonary Embolism GI History: Denies: Hx Gall Bladder Disease, Hx Gastrointestinal Bleed, Hx Ulcer, Hx Urosepsis History: Denies: Hx Kidney Stones, Hx Renal Disease Neurological History: Denies: Hx Dementia, Hx Migraine, Hx Seizures, Hx Transient Ischemic Attacks (TIA) Psychiatric History: Denies: Hx Anxiety, Hx Depression, Hx Schizophrenia, Hx Bipolar Disorder, Hx Substance Abuse - Immunization History Date of Tetanus Vaccine: unsure Date of Influenza Vaccine: 3 yrs ago Infectious Disease History: No Infectious Disease History: Denies: Hx Hepatitis, Hx Human Immunodeficiency Virus (HIV), Traveled Outside the [place] in Last 30 Days - Family History Known Family History: Positive: Diabetes Negative: Cardiac Disease - Social History Alcohol Use: None Hx Substance Use: No Substance Use Type: Reports: None Hx Tobacco Use: No Smoking Status (MU): Never Smoked Tobacco Type: Smokeless Tobacco Amount Used/How Often: 1 can every 2-3 days Length of Time of Smoking/Using Tobacco: started at age 17 Review of Systems Negative: Fever Positive: Ear Ache, Nasal Discharge Positive: Cough, Other - wheezing Positive: Headache All Other Systems Reviewed And Are Negative: Yes Physical Exam Triage Information Reviewed: Yes Vital Signs On Initial Exam: Initial Vitals Temp Pulse Resp BP Pulse Ox 97 F 90 20 130/74 95 12/23/17 08:26 12/23/17 08:12/23/17 08:12/23/17 08:12/23/17 08:26 Vital Signs Reviewed: Yes Appearance: Positive: Well-Appearing, No Pain Distress Skin: Positive: Warm, Skin Color Reflects Adequate Perfusion Head/Face: Positive: Normal Head/Face Inspection Eyes: Positive: EOMI ENT: Positive: Pharyngeal erythema, Nasal congestion, TM dull - left, TM red - left, Other - frontal sinus tenderness on percussion Neck: Positive: Nontender Respiratory/Lung Sounds: Positive: Breath Sounds Present, Wheezes - faint wheezes in bases, but good airmovement Cardiovascular: Positive: RRR. Negative: Murmur Abdomen Description: Positive: Nontender Musculoskeletal: Positive: Strength/ROM Intact Neurological: Positive: Sensory/Motor Intact, Alert, Oriented to Person Place, Time, CN Intact II-III Psychiatric: Positive: Normal - [place] Coma Scale Best Eye Response: 4 - Spontaneous Best Motor Response: 6 - Obeys Commands Best Verbal Response: 5 - Oriented Coma Scale Total: 15 Diagnostics - Vital Signs Vital Signs Temp Pulse Resp BP Pulse Ox 12/23/17 08:26 97 F 90 20 130/74 95 - Laboratory Lab Statement: Any lab studies that have been ordered have been reviewed, and results considered in the medical decision making process. Disposition - Course Course Of Treatment: 27 yr old male with Sinusitis, and cough productive yellow. Rx with Augmentin for sinuses, and pred, and mdi for his asthma issue. FU Primary referral. - Diagnoses Provider Diagnoses: Sinusitis, Acute bronchitis, Otitis media Discharge - Discharge Plan Condition: Good Disposition: HOME Prescriptions: Amoxicillin/Clavulanate TAB* [Augmentin TAB 875*] 875 mg PO BID #20 tab predniSONE TAB* [Deltasone TAB*] 40 mg PO DAILY #8 tab Patient Education Materials: Sinusitis (ED), Bronchospasm (ED) Referrals: [facility] [place] PH[facility]IAN REFERRAL [Outside] - 2 Days No Primary Care Phys,NOPCP [Primary Care Provider] - The documentation as recorded by the Wilbert marks Julia accurately reflects the service I personally performed and the decisions made by me, Gonzalo Winters MD.
[2017-12-23 09:36] VITALS: BP 138/74
== END 2017-12-23 09:32 | disposition home or self-care (01) ==
LOC: ED 08:19
DX: J32.9 Chronic sinusitis, unspecified (principal); J20.9 Acute bronchitis, unspecified; H66.90 Otitis media, unspecified, unspecified ear
CPT/HCPCS: 99282; A9270-GY; J7512

== ENCOUNTER 2018-01-03 09:25 | Emergency (ER) | payer SELFPAY ==
[2018-01-03 09:51] VITALS: BP 133/81
--- NOTE | 2018-01-03 11:21 | UC ---
Skin Complaint HPI - HPI Summary HPI Summary: For several days has had mild discomfort in perianal area, girlfriend thinks it looks infected. Has seen scant bright red blood on toilet tissue. For years pt has had chronic diarrhea, from 5-10 times per day. Reports seeing GI specialist in the past, was told "nothing is wrong." Denies recent weight loss or fever. - History of Current Complaint Chief Complaint: UCGU Time Seen by Provider: 01/03/18 11:01 Stated Complaint: PERSONAL Hx Obtained From: Patient Onset/Duration: Gradual Onset, Lasting Days Timing: Constant Onset Severity: Mild Current Severity: Mild Pain Intensity: 0 Location: Discrete Character: Redness, Painful Aggravating Factor(s): Touch Alleviating Factor(s): Nothing Associated Signs & Symptoms: Positive: Tenderness - Allergy/Home Medications Allergies/Adverse Reactions: Allergies Allergy/AdvReac Type Severity Reaction Status Date / Time No Known Allergies Allergy Verified 01/03/18 09:51 Home Medications: Home Medications Ibuprofen TAB* [Advil TAB*] 3 tab PO Q6HR PRN 01/03/18 [History Confirmed ] Review of Systems Constitutional: Negative Skin: Rash Eyes: Negative ENT: Negative Respiratory: Negative Cardiovascular: Negative Gastrointestinal: Negative Genitourinary: Negative Motor: Negative Neurovascular: Negative Musculoskeletal: Negative Neurological: Negative Psychological: Negative Is Patient Immunocompromised?: No All Other Systems Reviewed And Are Negative: Yes PMH/Surg Hx/FS Hx/Imm Hx Respiratory History: Asthma Other History Of: Negative For: HIV, Hepatitis B, Hepatitis C, Anticoagulant Therapy - Surgical History Surgical History: None - Family History Known Family History: Positive: Diabetes Negative: Cardiac Disease - Social History Alcohol Use: None Substance Use Type: None Smoking Status (MU): Never Smoked Tobacco Type: Smokeless Tobacco Amount Used/How Often: 1 can every 2-3 days Length of Time of Smoking/Using Tobacco: started at age 17 Cessation Counseling: Patient Advised to Stop - Immunization History Most Recent Tetanus Shot: no Physical Exam Triage Information Reviewed: Yes Appearance: Well-Appearing, Obese Vital Signs: Initial Vital Signs Temp 97.7 F 01/03/18 09:43 Pulse 88 01/03/18 09:43 Resp 16 01/03/18 09:43 BP 133/81 01/03/18 09:43 Pulse Ox 100 01/03/18 09:43 Vital Signs Reviewed: Yes Eye Exam: Normal Eyes: Positive: Conjunctiva Clear ENT Exam: Normal ENT: Positive: Normal ENT inspection, Hearing grossly normal, Pharynx normal, TMs normal Dental: Positive: Gross Decay/Caries @ - poor dentition Neck exam: Normal Respiratory Exam: Normal Respiratory: Positive: Chest non-tender, Lungs clear, Normal breath sounds, No respiratory distress, No accessory muscle use Cardiovascular Exam: Normal Cardiovascular: Positive: RRR, No Murmur Abdomen Description: Positive: Nontender Musculoskeletal Exam: Normal Neurological Exam: Normal Neurological: Positive: Alert Psychological Exam: Other Skin: Positive: rashes - confluent redness with maceration and cracks in perianal area and gluteal cleft, worse in creases. No streaking, minimal trenderness. Course/Dx - Diagnoses Provider Diagnoses: perianal candidiasis. chronic diarrhea Discharge - Discharge Plan Condition: Stable Disposition: HOME Prescriptions: Nystatin CREAM* [Nystatin Cream*] 1 applic TOPICAL TID #30 gm Patient Education Materials: Skin Yeast Infection (ED) Referrals: [facility] [place] [facility] REFERRAL [Outside] Additional Instructions: Keep the area around your anus very clean and dry as much as possible. You should feel good improvement in your rash within a few days. Use the cream for 7 -10 days, then start using a barrier cream once daily. As we discussed, your chronic diarrhea might improve if you add a fiber supplement. Otherwise, an elminiation diet may help determine if there is a particular food that is causing your symptoms. Please see a primary care provider in 2 weeks for follow-up.
== END 2018-01-03 11:18 | disposition home or self-care (01) ==
LOC: UCEAST 09:25
DX: B37.89 Other sites of candidiasis (principal); R19.7 Diarrhea, unspecified; Z11.4 Encounter for screening for human immunodeficiency virus [HIV]; J45.909 Unspecified asthma, uncomplicated; F17.220 Nicotine dependence, chewing tobacco, uncomplicated
CPT/HCPCS: 36415; 86703; 99212; G0463

== ENCOUNTER 2018-01-24 09:17 | Emergency (ER) | payer SELFPAY ==
[2018-01-24 09:30] VITALS: BP 127/75
--- NOTE | 2018-01-24 09:41 | UC ---
Skin Complaint HPI - HPI Summary HPI Summary: Pt presents with continued rash to perineal region. He tells me that he was seen earlier this month for same issue. He was rx'd nystatin cream, which helped , but rash never completely went away. He has been trying to keep the area clean and dry as much as possible. No drainage, fever, chills, or urinary symptoms. - History of Current Complaint Chief Complaint: UCSkin Time Seen by Provider: 01/24/18 09:41 Stated Complaint: PERSONAL Hx Obtained From: Patient Onset/Duration: Gradual Onset Onset Severity: Moderate Current Severity: Moderate Pain Intensity: 5 Pain Scale Used: 0-10 Numeric - Allergy/Home Medications Allergies/Adverse Reactions: Allergies Allergy/AdvReac Type Severity Reaction Status Date / Time No Known Allergies Allergy Verified 01/24/18 09:22 Review of Systems Constitutional: Negative Skin: Rash Respiratory: Negative Cardiovascular: Negative Gastrointestinal: Negative Neurovascular: Negative Neurological: Negative Psychological: Negative All Other Systems Reviewed And Are Negative: Yes PMH/Surg Hx/FS Hx/Imm Hx Previously Healthy: Yes Respiratory History: Asthma Other History Of: Negative For: HIV, Hepatitis B, Hepatitis C, Anticoagulant Therapy - Surgical History Surgical History: None - Family History Known Family History: Positive: Diabetes Negative: Cardiac Disease - Social History Occupation: Employed Full-time Lives: With Family Alcohol Use: None Substance Use Type: None Smoking Status (MU): Never Smoked Tobacco Type: Smokeless Tobacco Amount Used/How Often: 1 can every 2-3 days Length of Time of Smoking/Using Tobacco: started at age 17 - Immunization History Most Recent Tetanus Shot: no Physical Exam Triage Information Reviewed: Yes Appearance: Well-Appearing, No Pain Distress, Obese Vital Signs: Initial Vital Signs Temp 97.6 F 01/24/18 09:26 Pulse 80 01/24/18 09:26 Resp 16 01/24/18 09:26 BP 127/75 01/24/18 09:26 Pulse Ox 99 01/24/18 09:26 Vital Signs Reviewed: Yes Neck: Positive: Supple, Nontender, No Lymphadenopathy Respiratory: Positive: Lungs clear, Normal breath sounds, No respiratory distress, No accessory muscle use Cardiovascular: Positive: RRR, No Murmur, Pulses Normal Male Genital Exam: Positive: Normal Genitalia Neurological: Positive: Alert Psychological: Positive: Age Appropriate Behavior Skin: Positive: Other - Mildly erythematous rash on the perineal region with scant white curd-like discharge. Course/Dx - Course Course Of Treatment: Suspect perineal yeast. Will rx for diflucan and topical powder. Return if not better. - Diagnoses Provider Diagnoses: Skin yeast perineal region Discharge - Sign-Out/Discharge Documenting (check all that apply): Discharge - Discharge Plan Condition: Stable Disposition: HOME Prescriptions: Fluconazole 150 MG (NF) [Diflucan 150 mg (NF)] 150 mg PO DAILY #5 tab Nystatin TOP POWDER* 1 applic TOPICAL BID #1 btl Patient Education Materials: Skin Yeast Infection (ED) Referrals: No Primary Care Phys,NOPCP [Primary Care Provider] - Additional Instructions: If you develop a fever, shortness of breath, chest pain, new or worsening symptoms - please call your PCP or go to the ED. - Billing Disposition and Condition Condition: STABLE Disposition: HOME
== END 2018-01-24 09:54 | disposition home or self-care (01) ==
LOC: UCEAST 09:17
DX: B37.49 Other urogenital candidiasis (principal); J45.909 Unspecified asthma, uncomplicated; F17.220 Nicotine dependence, chewing tobacco, uncomplicated
CPT/HCPCS: 99212; G0463

== ENCOUNTER 2018-02-14 08:50 | Emergency (ER) | payer SELFPAY ==
[2018-02-14 09:42] VITALS: BP 117/93
--- NOTE | 2018-02-14 09:55 | ED ---
Throat Pain/Nasal Congestion - HPI Summary HPI Summary: Pt here w/ hole in gum line of lower internal lip. Reports he's been chewing tobacco for 9 years however quit 2 days ago d/t pain from hole. Thought this was a canker sore but hole persisted beyond length of time he would typically have a canker sore. Pain is worse w/ stretching lip, eating/drinking. Denies redness, swelling, drainage, fever, chills, throat fullness/pain, trouble breathing or swallowing. He has been Orajel in the area which provides temporary relief prior to eating and drinking. He is also trying to clean the area after eating and drinking. He has not taken any NSAIDs or acetaminophen for pain. He denies smoking, alcohol consumption or illicit drug use. Admits he does brush his teeth daily but has not followed with a dentist in many years as he does not have insurance to do so. WHen asked about GI hx, he reports h/o BM's 6-8 x day when he eats greasy foods - otherwise, BM's are "only a few times a day w/ clean eating". Hda w/u for Crohn's last year d/t abnormal BM's - negative. Fam hx significant for colon ca , prostate ca, breast ca. No fam h/o IBS, crohn's, UC. - History of Current Complaint Chief Complaint: EDDentalPain Time Seen by Provider: 02/14/18 08:57 Hx Obtained From: Patient - Allergies/Home Medications Allergies/Adverse Reactions: Allergies Allergy/AdvReac Type Severity Reaction Status Date / Time No Known Allergies Allergy Verified 02/14/18 09:23 PMH/Surg Hx/FS Hx/Imm Hx Previously Healthy: Yes Endocrine/Hematology History: Denies: Hx Anticoagulant Therapy, Hx Diabetes, Hx Thyroid Disease Cardiovascular History: Denies: Hx Congestive Heart Failure, Hx Deep Vein Thrombosis, Hx Hypertension , Hx Myocardial Infarction, Hx Pacemaker/ICD Respiratory History: Reports: Hx Asthma Denies: Hx Chronic Obstructive Pulmonary Disease (COPD), Hx Lung Cancer, Hx Pneumonia, Hx Pulmonary Embolism GI History: Denies: Hx Gall Bladder Disease, Hx Gastroesophageal Reflux Disease, Hx Gastrointestinal Bleed, Hx Ulcer, Hx Urosepsis History: Denies: Hx Kidney Stones, Hx Renal Disease Neurological History: Denies: Hx Dementia, Hx Migraine, Hx Seizures, Hx Transient Ischemic Attacks (TIA) Psychiatric History: Denies: Hx Anxiety, Hx Depression, Hx Schizophrenia, Hx Bipolar Disorder, Hx Substance Abuse - Immunization History Date of Tetanus Vaccine: unsure Date of Influenza Vaccine: 3 yrs ago Infectious Disease History: No Infectious Disease History: Denies: Hx Hepatitis, Hx Human Immunodeficiency Virus (HIV), Traveled Outside the [place] in Last 30 Days - Family History Known Family History: Positive: Diabetes Negative: Cardiac Disease - Social History Occupation: Unemployed Lives: With Family Alcohol Use: None Hx Substance Use: No Substance Use Type: Reports: None Hx Tobacco Use: No Smoking Status (MU): Never Smoked Tobacco Type: Smokeless Tobacco - quit 2 days ago Amount Used/How Often: 1 can every 2-3 days x 9 years Length of Time of Smoking/Using Tobacco: started at age 17 Review of Systems Constitutional: Negative Negative: Fever, Chills, Fatigue Eyes: Negative ENT: Other - oral sore Negative: Dental Pain, Ear Ache, Nasal Discharge Cardiovascular: Negative Respiratory: Negative Gastrointestinal: Other Negative: Abdominal Pain, Vomiting, Nausea Positive: no symptoms reported Musculoskeletal: Negative Skin: Negative Neurological: Negative Psychological: Normal All Other Systems Reviewed And Are Negative: Yes Physical Exam Triage Information Reviewed: Yes Vital Signs On Initial Exam: Initial Vitals Temp Pulse Resp BP Pulse Ox 97.1 F 79 16 130/64 99 02/14/18 08:53 02/14/18 08:53 02/14/18 08:53 02/14/18 08:53 02/14/18 08:53 Vital Signs Reviewed: Yes Appearance: Positive: Well-Appearing, No Pain Distress, Obese Skin: Positive: Warm, Skin Color Reflects Adequate Perfusion, Dry - no erythema about the face Head/Face: Positive: Normal Head/Face Inspection Eyes: Positive: Normal, EOMI, Conjunctiva Clear. Negative: Conjunctiva Inflammed, Discharge ENT: Positive: Hearing grossly normal, Pharynx normal, TMs normal, Uvula midline. Negative: Nasal congestion, Nasal drainage, Tonsillar swelling, Tonsillar exudate, Trismus, Muffled voice, Hoarse voice, Dental tenderness, Sinus tenderness Dental: Positive: Other - anterior inner lip/buccal mucosa and opposing gingiva are w/ subtly wrinkled, whitish mucosa w/ 2.5mm well defnied hole within mucosa - no erythema, no edema, no d/c - pain w/ stretching lip from mouth to evaluate. Negative: Dental Fracture @, Abscess @ Neck: Positive: Supple, Nontender, No Lymphadenopathy Respiratory/Lung Sounds: Positive: Clear to Auscultation, Breath Sounds Present. Negative: Stridor Cardiovascular: Positive: Normal, RRR Musculoskeletal: Positive: Normal, Strength/ROM Intact Neurological: Positive: Normal, Sensory/Motor Intact, Alert, Oriented to Person Place, Time, CN Intact II-III Psychiatric: Positive: Normal Diagnostics - Vital Signs Vital Signs Temp Pulse Resp BP Pulse Ox 02/14/18 09:41 97.1 F 77 18 117/93 99 02/14/18 09:16 77 98 02/14/18 09:13 115/93 02/14/18 08:53 97.1 F 79 16 130/64 99 - Laboratory Lab Statement: Any lab studies that have been ordered have been reviewed, and results considered in the medical decision making process. EENT Course/Dx - Course Course Of Treatment: Suspect gingival and mucosal changes are from chewing tobacco use - does not appear to be a viral canker sore however will treat pain as such w/ magic mouthwash. Congratulated on tobacco cessation efforts and encouraged to continue this for her lifetime due to suspicious changes that are starting to take place. Strongly encouraged him to follow up with not only a dentist to monitor for signs of cancer but also his primary care physician as he has a strong family history of cancer including gastrointestinal sources. Patient agrees with plan and will return to the emergency department if danger signs and symptoms present. - Diagnoses Provider Diagnoses: Oral frictional keratosis Discharge - Sign-Out/Discharge Documenting (check all that apply): Discharge - Discharge Plan Condition: Stable Disposition: HOME Prescriptions: Magic Mouth Was-GEOVANNA/MAAL/LIDO* 5 ml SWISH SPIT QID PRN #200 ml PRN Reason: Pain Patient Education Materials: Canker Sores (ED), Smokeless Tobacco Keratosis (DC ) Referrals: [facility]IAN REFERR[facility] [Outside] No Primary Care Phys,NOPCP [Primary Care Provider] - Additional Instructions: Congratulations on your cessation of chewing tobacco! Please continue this new habit to allow your mouth to heal and prevent future injuries to the tissue of your mouth as well as your esophagus and stomach. If you develop return of cravings, please contact her PCP to discuss alternative tobacco replacement programs/behavioral couseling for support. He may use Magic mouthwash to reduce pain and effort to allow you to stay hydrated and nourished throughout the healing process. Avoid foods/beverages that may worsen your symptoms such as those that are spicy, acidic, etc. You may also take ibuprofen as needed for pain and swelling. Contact a dentist for recheck as you have a history of tobacco use with mucosal changes. This can lead to cancerous changes and should be followed by a professional. Contact information for local dentists provided in your discharge packet today. *If you develop redness, swelling, purulent drainage, fever, chills, difficulty swallowing or breathing, neck pain or stiffness, return to the emergency department. - Billing Disposition and Condition Condition: STABLE Disposition: HOME
== END 2018-02-14 09:41 | disposition home or self-care (01) ==
LOC: ED 08:50
DX: K13.21 Leukoplakia of oral mucosa, including tongue (principal); Z87.891 Personal history of nicotine dependence
CPT/HCPCS: 99282

== ENCOUNTER 2018-05-02 07:25 | Emergency (ER) | payer SELFPAY ==
[2018-05-02 08:03] LABS: ABS Basophils 0.1 10^3/ul (0-0.2); ABS Eosinophils 0.4 10^3/ul (0-0.6); ABS Monocytes 0.8 10^3/ul (0-0.8); ABS Nucleated RBC 0 10^3/ul; Eosinophil % 3.9 % (0-6); Hematocrit 44 % (42-52); Hemoglobin 14.8 g/dl (14.0-18.0); Lymphocyte % 32.4 % (25-47); Mean Corpuscular HGB Conc 34 g/dl (31-36); Mean Corpuscular Hemoglobin 28 pg (27-31); Mean Corpuscular Volume 84 fL (80-94); Mean Platelet Volume 8.9 um3 (7.4-10.4); Nucleated Red Blood Cells % 0.1; Platelet Count 251 10^3/ul (150-450); Red Blood Count 5.24 10^6/ul (4.00-5.40); Red Cell Distribution Width 14 % (10.5-15); White Blood Count 9.3 10^3/ul (3.5-10.8)
--- NOTE | 2018-05-02 08:27 | RAD ---
HISTORY: pain bilateral, bilateral testicular pain with ejaculation COMPARISONS: None TECHNIQUE: Multiple transverse and longitudinal ultrasound images were obtained of the scrotum, using grayscale, color Doppler, and spectral Doppler imaging. FINDINGS: RIGHT: RIGHT TESTICLE: The right testicle measures 4.3 x 2.5 x 2.8 cm. The right testicle is homogeneous in echotexture, without testicular parenchymal mass. Normal arterial and venous waveforms are identified within the right testicle on spectral Doppler imaging. RIGHT EPIDIDYMIS: The right epididymis measures 0.9 cm at the head. RIGHT SCROTUM: There is no hydrocele or varicocele. LEFT: LEFT TESTICLE: The left testicle measures 4.3 x 2.4 x 2.8 cm. The left testicle is homogeneous in echotexture, without testicular parenchymal mass. Normal arterial and venous waveforms are identified within the left testicle on spectral Doppler imaging. LEFT EPIDIDYMIS: The left epididymis measures 1.1 cm at the head. LEFT SCROTUM: There is a small left varicocele. There is no hydrocele. OTHER: None IMPRESSION: 1. NO SONOGRAPHIC FEATURES OF TORSION. PLEASE NOTE THAT PARTIAL OR INTERMITTENT TORSION MAY BE SONOGRAPHICALLY NORMAL. 2. NO TESTICULAR PARENCHYMAL MASS. 3. SMALL LEFT VARICOCELE.
--- NOTE | 2018-05-02 08:30 | RAD ---
Indication: Epigastric abdominal pain. Comparison: October 31, 2014 Technique: RIGHT upper quadrant ultrasound. Report: Appropriate direction flow documented in the portal and hepatic veins. 16.2 cm liver is echogenic in echogenicity. Negative for focal hepatic lesions. Negative for intrahepatic biliary dilatation. 3.7 mm common bile duct. Adequately distended gallbladder with normal 2.7 mm wall is without pathologic finding. Negative for sonographic Castillo's sign. The pancreas is obscured secondary to bowel gas and body habitus limiting assessment. Negative for ascites. 9.7 cm RIGHT kidney is unremarkable. IMPRESSION: #. Hepatosteatosis #. Negative for gallbladder pathology.
[2018-05-02 08:44] LABS: Urine Appearance Clear; Urine Blood Negative (Negative); Urine Color Yellow; Urine Ketones Negative (Negative); Urine Protein Negative (Negative); Urine Specific Gravity 1.018 (1.010-1.030); Urine Urobilinogen Negative (Negative)
[2018-05-02 10:16] VITALS: BP 124/68
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
== END 2018-05-02 10:15 | disposition home or self-care (01) ==
LOC: ED 07:25
DX: R07.9 Chest pain, unspecified (principal); N50.812 Left testicular pain; N50.811 Right testicular pain; Z87.891 Personal history of nicotine dependence
CPT/HCPCS: 36415; 76705; 76870; 80053; 81003; 85025; 87491; 87591; 99282

== ENCOUNTER 2019-04-06 08:47 | Emergency (ER) | payer OTHER ==
[2019-04-06 09:26] LABS: ABS Basophils 0.1 10^3/ul (0-0.2); ABS Eosinophils 0.3 10^3/ul (0-0.6); ABS Lymphocytes 2.2 10^3/ul (1.0-4.8); ABS Monocytes 0.6 10^3/ul (0-0.8); ABS Neutrophils 4.3 10^3/ul (1.5-7.7); Eosinophil % 4.3 %; Hematocrit 44 % (42-52); Hemoglobin 14.6 g/dL (14.0-18.0); Lymphocyte % 29.3 %; Mean Corpuscular HGB Conc 33 g/dL (31-36); Mean Corpuscular Hemoglobin 28 pg (27-31); Mean Corpuscular Volume 85 fL (80-94); Nucleated Red Blood Cells % 0.1; Platelet Count 243 10^3/uL (150-450); Red Blood Count 5.23 10^6 /uL (4.18-5.48); Red Cell Distribution Width 14 % (10.5-15); White Blood Count 7.5 10^3/uL (3.5-10.8)
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
[2019-04-06 09:39] LABS: INR 1.13 (0.82-1.09)
[2019-04-06 09:42] LABS: Albumin 4.2 g/dL (3.2-5.2); Albumin/Globulin Ratio 1.4 (1-3); Calcium 9.5 mg/dL (8.6-10.3); EGFR African American 116.5 (>60); EGFR Non-African American 96.3 (>60); Globulin 3.1 g/dL (2-4); Total Bilirubin 0.6 mg/dL (0.2-1.0); Total Protein 7.3 g/dL (6.4-8.9)
[2019-04-06 12:38] VITALS: BP 110/60
== END 2019-04-06 12:37 | disposition home or self-care (01) ==
LOC: ED 08:47
DX: R07.9 Chest pain, unspecified (principal); J45.909 Unspecified asthma, uncomplicated; F32.9 Major depressive disorder, single episode, unspecified; F17.290 Nicotine dependence, other tobacco product, uncomplicated; Z87.01 Personal history of pneumonia (recurrent); Z79.51 Long term (current) use of inhaled steroids
CPT/HCPCS: 36415; 71046; 80053; 84484; 85025; 85610; 93005; 99283

== ENCOUNTER 2019-09-04 09:46 | Emergency (ER) | payer OTHER ==
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
[2019-09-04 10:39] VITALS: BP 121/71
== END 2019-09-04 10:38 | disposition home or self-care (01) ==
LOC: ED 09:46
DX: K08.89 Other specified disorders of teeth and supporting structures (principal); J45.909 Unspecified asthma, uncomplicated; F32.9 Major depressive disorder, single episode, unspecified; F17.290 Nicotine dependence, other tobacco product, uncomplicated
CPT/HCPCS: 99282